=== PATIENT | male | born 1955 | race Caucasian/White ===

== ENCOUNTER → 2018-07-07 | Outpatient (REF) | payer MEDICARE, OTHER ==
[~2018-07-07] MED LIST: /WARF5TA PO; ACET65TA PO; NAPRPOW4 PO; OMEPPOW18 PO; OXYC10TA97 PO; PERC5TAB8 PO
[2018-07-07 17:57] LABS: FREE T4 0.92 NG/DL (0.76-1.46); RHEUMATOID FACTOR QUANT < 10.0 IU/ML (<15.0); TOTAL PROTEIN 7.3 GM/DL (6.4-8.2)
[2018-07-07 19:18] LABS: FOLATE 20.1 NG/ML; VITAMIN B12 LEVEL 801 PG/ML
[2018-07-08 10:35] LABS: ALBUMIN 4.52 GM/DL (3.29-5.55); ALBUMIN % 61.9 % (55.8-66.1); ALPHA-1-GLOBULIN % 3.6 % (2.9-4.9); ALPHA-1-GLOBULINS 0.26 GM/DL (0.17-0.41); ALPHA-2-GLOBULINS 0.82 GM/DL (0.42-0.99); ALPHA-2-GLOBULINS % 11.3 % (7.1-11.8); BETA-1-GLOBULINS 0.42 GM/DL (0.28-0.60); BETA-1-GLOBULINS % 5.7 % (4.7-7.2); BETA-2-GLOBULINS 0.43 GM/DL (0.19-0.55); BETA-2-GLOBULINS % 5.9 % (3.2-6.5); GAMMA GLOBULIN % 11.6 % (11.1-18.8); GAMMA GLOBULINS 0.85 GM/DL (0.65-1.58)
[2018-07-11 00:07] LABS: VITAMIN E(ALPHA TOCOPHEROL) 18.2 mg/L (9.0-29.0); VITAMIN E(GAMMA TOCOPHEROL) 2.2 mg/L (0.5-4.9)
[2018-07-12 08:23] LABS: VITAMIN B1 LEVEL WHOLE BLOOD 128.1 nmol/L (66.5-200.0); VITAMIN B6,PYRIDOXAL PHOSPHATE 29.5 ug/L (5.3-46.7)
[2018-07-12 10:24] LABS: ANTINUCLEAR ANTIBODIES DIRECT Negative (Negative); Methylmalonic Acid 104 nmol/L (0-378)
== END ==
LOC: M LABNEURO 13:03
PROVIDERS: ATTEND Psychiatry & Neurology Neurology
DX: E11.9 Type 2 diabetes mellitus without complications (principal); R20.0 Anesthesia of skin; E07.9 Disorder of thyroid, unspecified